=== PATIENT | male | born 1950 | race Two or more races ===

== ENCOUNTER 2020-05-20 09:00 | Outpatient (CLI) | payer OTHER | END 2020-05-20 09:17 | disposition home or self-care (01) | LOC: SONOGRAMA 09:00 | PROVIDERS: ATTEND Internal Medicine Gastroenterology | DX: R10.84 Generalized abdominal pain (principal); E83.119 Hemochromatosis, unspecified ==

== ENCOUNTER 2021-01-27 08:46 | Inpatient (IN) | payer OTHER ==
[~2021-01-27] VITALS: Ht 172.7 cm; Wt 87.1 kg
[2021-01-27] MEDS ORDERED: JARDIANCE25 MG PO (08:51)
[2021-01-27] MEDS ORDERED: TRESIBA FL100 UNIT/1 (08:52)
[2021-01-27] MEDS ORDERED: PROTONIX40 MG PO (08:52)
[2021-01-27] MEDS ORDERED: INDERAL LA80 MG (08:53)
[2021-01-27] MEDS ORDERED: IRON240 MG (08:54)
[2021-01-28] MEDS ORDERED: CLINDAMYCIN PHO30 M1 (10:59)
== END 2021-01-29 18:43 | disposition home or self-care (01) | DRG 812 ==
LOC: ER 08:46 → SEC-K 19:30 → MEDI 19:30 → MEDJ 01-28 14:37
PROVIDERS: ADMIT Internal Medicine; ATTEND Internal Medicine
PROC: 30233N1 Transfusion of Nonautologous Red Blood Cells into Peripheral Vein, Percutaneous Approach (ICD-10-PCS; principal; 2021-01-27)
DX: D64.9 Anemia, unspecified (principal); D61.818 Other pancytopenia; E83.118 Other hemochromatosis; E11.9 Type 2 diabetes mellitus without complications; Z79.4 Long term (current) use of insulin; K76.89 Other specified diseases of liver; Z85.72 Personal history of non-Hodgkin lymphomas; Z20.822 Contact with and (suspected) exposure to COVID-19

== ENCOUNTER 2021-05-05 11:30 | Inpatient (IN) | payer OTHER ==
[~2021-05-05] VITALS: Ht 172.7 cm; Wt 88.5 kg
[~2021-05-05 11:30] MED LIST: CLINDAMYCIN PHO30 M1; INDERAL LA80 MG; IRON240 MG; JARDIANCE25 MG PO; PROTONIX40 MG PO; TRESIBA FL100 UNIT/1
--- NOTE | 2021-05-05 12:35 | NUR ---
SE RECIBE PACIENTE MASCULINO DE 71 ANOS DE EDAD DESPIERTO Y ALERTA CON QUEJA PRINCIPAL DE ANEMIA. PACIENTE CON REFERIDO DE MEDICO PRIMARIO PARA TRANSFUSION
--- NOTE | 2021-05-05 13:56 | NUR ---
PACIENTE EVALUADO POR DR. GUILLEN. MR. AMADORAN COLECTA MUESTRAS DE ABELARDO DENA ORDEN MEDICA Y SIGUIENDO TECNICAS ASEPTICAS. SE ORIENTA A PACIENTE SOBRE POCEDIMIENTO. MR. AMADORAN COLECTA TUBOS PILOTOS PARA BANCO DE ABELARDO. SE REALIZA LLAMADA A BANCO QUIENES REFIEREN QUE PACIENTE YA TIENE RECORD EN EL HOSPITAL. SE ESPERA RESULTADOS DE LABORATORIO.
--- NOTE | 2021-05-05 14:23 | NUR ---
PACIENTE PENDIENTE DE REALIZAR MUESTRA DE COVID PARA ENVIAR A LABORATORIO.
--- NOTE | 2021-05-05 14:23 | NUR ---
SE REALIZA COTEJO DE HOJA DE REQUICION CON SR. CORTÉS DE LABORATIRIO CUAL NOTIFICA QUE TODO ESTA CORRECTO. PACIENTE AL MOMENTO SE MANTIENE PENDIENTE DE SER TRANFUNDIDO CON 4 UNIDADES DE PRBC POR ORDEN MEDICA DE DR. GUILLEN CUAL FIRMA CONSENTIMIENTO. PACIENTE TAMBIEN REALIZA FIRMA DE CONSENTIMIENTO.
--- NOTE | 2021-05-05 15:44 | NUR ---
SE RECIBE PTE EN EL AREA DE OBSERVACION EN GUILLAUME CON BARANDAS ELEVADA Y TIMBRE ACCESIBLE PTE ALERTA Y ORIENTADO POR 3 NO PRESENTA DOLOR AL MOMENTO SE OBSERVA VENOPUNCION PATENTE Y SKYE DE EDMEA PTE PENDIENTE EL COVID Y SE LE DA SEGUIMIENTO A LAS 4UNIDADES DE PRBC LA CUAL NO ESTAN DISPONIBLE AL MOMENTO
--- NOTE | 2021-05-05 17:46 | NUR ---
SE REALIZA CAMBIO EN ORDEN DE TRANSFUCCION DE PTE, SE COLOCARA 1RA UNIDAD DE PRBC COMPLETA Y SE REQUIZAN 2 UNIDADES DE PRBC FRACCIONADAS A BANCO DE ABELARDO [facility], SE NOTIFICA A MRS. HARRISON SOBRE REQUISION.
[2021-05-10] MEDS ORDERED: NADOLOL20 MG PO (15:25)
[2021-05-10] MEDS ORDERED: FUROSEMIDE40 MG PO (15:26)
[2021-05-10] MEDS ORDERED: SPIRONOLACTONE50 MG PO (15:26)
[2021-05-10] MEDS ORDERED: PROTONIX40 MG PO (15:27)
[2021-05-10] MEDS ORDERED: THIAMINE HCL100 MG PO (15:28)
[2021-05-10] MEDS ORDERED: VITAMIN B-121000 MC2 SL (15:29)
[2021-05-10] MEDS ORDERED: FOLIC ACID0.8 M1 PO (15:30)
== END 2021-05-10 15:48 | disposition home or self-care (01) | DRG 812 ==
LOC: ER 11:30 → MEDI 19:06
PROVIDERS: ADMIT Internal Medicine; ATTEND Internal Medicine
PROC: 30233N1 Transfusion of Nonautologous Red Blood Cells into Peripheral Vein, Percutaneous Approach (ICD-10-PCS; principal; 2021-05-05)
DX: D46.1 Refractory anemia with ring sideroblasts (principal); C85.90 Non-Hodgkin lymphoma, unspecified, unspecified site; E11.9 Type 2 diabetes mellitus without complications; K75.81 Nonalcoholic steatohepatitis (NASH); Z79.4 Long term (current) use of insulin

== ENCOUNTER 2021-05-22 14:08 | Emergency (ER) | payer OTHER ==
[~2021-05-22] VITALS: Ht 167.6 cm; Wt 68.0 kg
[~2021-05-22 14:08] MED LIST changes: +FOLIC ACID0.8 M1 PO; +FUROSEMIDE40 MG PO; +NADOLOL20 MG PO; +SPIRONOLACTONE50 MG PO; +THIAMINE HCL100 MG PO; +VITAMIN B-121000 MC2 SL
[2021-05-22] MEDS ORDERED: CEFPODOXIME PR200 MG PO (19:00)
== END 2021-05-22 19:33 | disposition home or self-care (01) ==
LOC: ER 14:08
DX: N39.0 Urinary tract infection, site not specified (principal); R41.82 Altered mental status, unspecified; R25.8 Other abnormal involuntary movements

== ENCOUNTER 2021-07-28 20:41 | Emergency (ER) | payer OTHER ==
[~2021-07-28] VITALS: Ht 172.7 cm; Wt 77.1 kg
[~2021-07-28 20:41] MED LIST changes: +CEFPODOXIME PR200 MG PO
== END 2021-07-28 23:21 | disposition home or self-care (01) ==
LOC: ER 20:41
DX: E78.00 Pure hypercholesterolemia, unspecified (principal); K74.69 Other cirrhosis of liver; R41.0 Disorientation, unspecified; R53.1 Weakness; T59.894A Toxic effect of other specified gases, fumes and vapors, undetermined, initial encounter; Y92.89 Other specified places as the place of occurrence of the external cause

== ENCOUNTER 2021-08-08 10:50 | Outpatient (CLI) | payer OTHER | END 2021-08-08 11:04 | disposition home or self-care (01) | LOC: SONOGRAMA 10:50 | PROVIDERS: ATTEND Internal Medicine Endocrinology, Diabetes & Metabolism | DX: N64.89 Other specified disorders of breast (principal); E11.65 Type 2 diabetes mellitus with hyperglycemia; E83.118 Other hemochromatosis; I25.10 Atherosclerotic heart disease of native coronary artery without angina pectoris ==

== ENCOUNTER 2023-05-19 11:09 | Outpatient (CLI) | payer OTHER ==
[~2023-05-19 11:09] MED LIST changes: +AMOX-CLAV 875-1 EAC1 PO; +PROBIOTIC ACID1 EAC1 PO
== END 2023-05-19 11:20 | disposition home or self-care (01) ==
LOC: RAD 11:09
PROVIDERS: ATTEND Internal Medicine
DX: M25.561 Pain in right knee (principal); M25.562 Pain in left knee; J22 Unspecified acute lower respiratory infection

== ENCOUNTER 2023-12-13 11:05 | Inpatient (IN) | payer OTHER ==
[~2023-12-13] VITALS: Ht 152.4 cm; Wt 75.7 kg
[2023-12-13] MEDS ORDERED: OZEMPIC0.25 MG/02 PO (11:31)
[2023-12-13] MEDS ORDERED: XIFAXAN550 MG PO (11:32)
[2023-12-13] MEDS ORDERED: 0.9 % SODIUM CHLORIDE 1,000 ML IV SCH (12:00)
[2023-12-13] MEDS ORDERED: PANTOPRAZOLE SODIUM 40 MG/VIAL VIAL IV PUSH ONE (12:15)
[2023-12-13 12:28] LABS: PH,URINE 6.5 (5.0-8.0); URINE APPEARANCE Clear; URINE BILIRRUBIN Negative (NEGATIVE); URINE BLOOD Negative; URINE COLOR Yellow; URINE LEUKOCYTE Negative; URINE NITRATE Negative; URINE PROTEIN Negative (NEGATIVE)
[2023-12-13 12:32] LABS: URINE BACTERIA 17.5 uL (0.0-1933); URINE EPITHELIAL CELLS 1.9 uL (0.0-38.8)
[2023-12-13 12:49] LABS: URINE GLUCOSE >=1000 MG/DL (NEGATIVE); URINE RBC 1.1 uL (0.0-20.8); URINE WBC 0.3 uL (0.0-23.2)
[2023-12-13 13:04] LABS: CALCIUM 7.9 mg/dL (8.5-10.1); CREATININE SERUM 0.74 mg/dL (0.70-1.30); GFR 103.11; POTASSIUM 4.2 mEq/L (3.5-5.1)
[2023-12-13 13:33] LABS: MEAN CELL VOLUME 87.3 fL (80.0-100.00); MEAN CORPUSCULAR HGB CONC 31.6 g/dl (32.0-36.0); PLATELET COUNT 135 K/uL (150-450); RED BLOOD COUNT 2.12 M/uL (4.00-6.00); RED CELL DISTRIBUTION WIDTH 17.5 % (11.5-14.5)
[2023-12-13 13:36] LABS: HEMATOCRIT 18.5 % (39.0-48.0); HEMOGLOBIN 5.9 g/dL (13-16.00); MEAN CORPUSCULAR HEMOGLOBIN 27.8 pg (27.00-32.0)
[2023-12-13 13:38] LABS: INR 1.07; PROTHROMBIN TIME 11.2 SECONDS (9.0-11.5)
[2023-12-13] MEDS ORDERED: FUROsemide 20 MG/2 ML VIAL IV SCH (14:00)
[2023-12-13] MEDS ORDERED: PANTOPRAZOLE SODIUM 80 MG in 0.9 % SODIUM CHLORIDE 100 ML IV SCH (14:00)
[2023-12-13] MEDS ORDERED: PATIENTS OWN MEDICATION (MEDICAMENTO EN PISO) PO SCH (17:29)
[2023-12-13] MEDS ORDERED: DEXTROSE 50 % IN WATER 0.5 G/ML DISP.SYRIN IV PRN (17:30)
[2023-12-13] MEDS ORDERED: INSULIN LISPRO 1,000 UNIT/10 ML UNITS SUBCUTANEO PRN (17:30)
[2023-12-14] MEDS ORDERED: NADOLOL 20 MG TABLET PO SCH (09:00)
[2023-12-14] MEDS ORDERED: LACTULOSE 20 G/30 ML BLIST.PACK PO SCH (09:00)
[2023-12-14] MEDS ORDERED: PATIENTS OWN MEDICATION (MEDICAMENTO EN PISO NEVERA) SUBCUTANEO SCH (09:00)
[2023-12-14] MEDS ORDERED: SPIRONOLACTONE 25 MG TABLET PO SCH (09:00)
[2023-12-14 10:57] LABS: MEAN CELL VOLUME 86.3 fL (80.0-100.00); MEAN CORPUSCULAR HGB CONC 32.5 g/dl (32.0-36.0); RED BLOOD COUNT 2.62 M/uL (4.00-6.00); RED CELL DISTRIBUTION WIDTH 16.1 % (11.5-14.5)
[2023-12-14 11:00] LABS: HEMATOCRIT 22.6 % (39.0-48.0); MEAN CORPUSCULAR HEMOGLOBIN 27.8 pg (27.00-32.0)
[2023-12-14 11:01] LABS: HEMOGLOBIN 7.3 g/dL (13-16.00); PLATELET COUNT 74 K/uL (150-450)
[2023-12-14] MEDS ORDERED: OCTREOTIDE ACETATE 0.05MG/ML (50MCG/ML) AMPUL IV ONE (11:30)
[2023-12-14] MEDS ORDERED: OCTREOTIDE ACETATE 1,000 MCG/5 ML VIAL IJ SCH (11:30)
[2023-12-14 11:54] LABS: ALBUMIN 2.3 gm/dL (3.4-5.0); BILIRUBIN TOTAL 1.4 mg/dL (0.3-1.2); BILIRUBIN,CONJUGATED 0.35 mg/dL (0.0-0.2); BILIRUBIN,UNCONJUGATED 1.05 mg/dL (0.0-0.6); MAGNESIUM 2.3 mg/dL (1.8-2.4); TOTAL PROTEIN 5.1 gm/dL (6.4-8.2)
[2023-12-14 12:06] LABS: PROSTATIC SPECIFIC ANTIGEN 0.093 NG/ML (0.010-4.00); TSH 1.57 uIU/mL (0.358-3.74)
[2023-12-14] MEDS ORDERED: OCTREOTIDE ACETATE 1,250 MCG in 0.9 % SODIUM CHLORIDE 250 ML IV SCH (12:15)
[2023-12-14] MEDS ORDERED: CHLORHEXIDINE GLUCONATE 120 ML BOTTLE TOP ONE (12:30)
[2023-12-14 14:55] LABS: INR 1.11; PARTIAL THROMBOPLASTIN TIME 24.9 SECONDS (22.0-34.0); PROTHROMBIN TIME 11.6 SECONDS (9.0-11.5)
[2023-12-14 20:34] LABS: HEMATOCRIT 28.5 % (39.0-48.0); MEAN CORPUSCULAR HGB CONC 32.5 g/dl (32.0-36.0); RED BLOOD COUNT 3.28 M/uL (4.00-6.00)
[2023-12-14 20:37] LABS: MEAN CORPUSCULAR HEMOGLOBIN 28.3 pg (27.00-32.0)
[2023-12-14 20:38] LABS: HEMOGLOBIN 9.3 g/dL (13-16.00); PLATELET COUNT 79 K/uL (150-450)
[2023-12-15 08:10] LABS: MEAN CORPUSCULAR HGB CONC 32.7 g/dl (32.0-36.0); RED CELL DISTRIBUTION WIDTH 16.1 % (11.5-14.5)
[2023-12-15 08:44] LABS: HEMOGLOBIN 8.8 g/dL (13-16.00); MEAN CORPUSCULAR HEMOGLOBIN 28.3 pg (27.00-32.0)
[2023-12-15] MEDS ORDERED: NADOLOL 20 MG TABLET PO SCH ×2 (09:00)
[2023-12-15] MEDS ORDERED: IRON FUM,PS/FOLIC/BCOMP,C NO.9 1 CAP CAPSULE PO SCH (09:00)
[2023-12-15] MEDS ORDERED: THIAMINE HCL 100 MG TABLET PO SCH (09:00)
[2023-12-15] MEDS ORDERED: PATIENTS OWN MEDICATION (MEDICAMENTO EN PISO) PO SCH (09:00)
[2023-12-15] MEDS ORDERED: CHOLECALCIFEROL (VITAMIN D3) 5,000 UNITS TABLET PO SCH (09:00)
[2023-12-15] MEDS ORDERED: CYANOCOBALAMIN (VITAMIN B-12) 1,000 MCG TABLET PO SCH (09:00)
[2023-12-15 09:04] LABS: PLATELET COUNT 92 K/uL (150-450)
[2023-12-15] MEDS ORDERED: SUCRALFATE 1 G TABLET PO SCH (09:16)
[2023-12-15] MEDS ORDERED: PANTOPRAZOLE SODIUM 40 MG TABLET.DR PO SCH (09:16)
[2023-12-16] MEDS ORDERED: PATIENTS OWN MEDICATION (MEDICAMENTO EN PISO NEVERA) SUBCUTANEO SCH ×2 (09:00→09:41)
[2023-12-16] MEDS ORDERED: INSULIN GLARGINE,HUM.REC.ANLOG 1,000 UNITS/10 ML UNITS SUBCUTANEO STA (10:15)
[2023-12-16 12:03] LABS: HEMATOCRIT 26.5 % (39.0-48.0); MEAN CELL VOLUME 87.6 fL (80.0-100.00); MEAN CORPUSCULAR HEMOGLOBIN 28.3 pg (27.00-32.0); MEAN CORPUSCULAR HGB CONC 32.5 g/dl (32.0-36.0); RED BLOOD COUNT 3.03 M/uL (4.00-6.00); RED CELL DISTRIBUTION WIDTH 16.8 % (11.5-14.5)
[2023-12-16 12:04] LABS: HEMOGLOBIN 8.6 g/dL (13-16.00); PLATELET COUNT 81 K/uL (150-450)
[2023-12-16 12:49] LABS: CREATININE SERUM 0.58 mg/dL (0.70-1.30); GFR 136.58; POTASSIUM 3.91 mEq/L (3.5-5.1)
[2023-12-16 19:24] LABS: ALT/SGPT 23 U/L (12-78); AST/SGOT 32 U/L (15-37); LDH 230 U/L (87-241); PHOSPHOKINASE CREATININE 246 U/L (39-308)
[2023-12-17] MEDS ORDERED: INSULIN GLARGINE,HUM.REC.ANLOG 1,000 UNITS/10 ML UNITS SUBCUTANEO SCH (09:00)
[2023-12-17 12:04] LABS: HEMATOCRIT 28.8 % (39.0-48.0); HEMOGLOBIN 9.6 g/dL (13-16.00); MEAN CELL VOLUME 87.1 fL (80.0-100.00); MEAN CORPUSCULAR HEMOGLOBIN 28.9 pg (27.00-32.0); MEAN CORPUSCULAR HGB CONC 33.1 g/dl (32.0-36.0); RED BLOOD COUNT 3.31 M/uL (4.00-6.00); RED CELL DISTRIBUTION WIDTH 16.2 % (11.5-14.5)
[2023-12-17 12:05] LABS: PLATELET COUNT 74 K/uL (150-450)
== END 2023-12-17 22:05 | disposition home or self-care (01) | DRG 812 ==
LOC: ER 11:05 → ICU-2 17:50 → ICU 17:50 → SURG 12-15 11:04
PROVIDERS: Emergency Medicine; ADMIT Internal Medicine; ATTEND Internal Medicine
PROC: 30233N1 Transfusion of Nonautologous Red Blood Cells into Peripheral Vein, Percutaneous Approach (ICD-10-PCS; 2023-12-13)
PROC: 4A12X4Z Monitoring of Cardiac Electrical Activity, External Approach (ICD-10-PCS; principal; 2023-12-15)
DX: D64.9 Anemia, unspecified (principal); K92.2 Gastrointestinal hemorrhage, unspecified; K76.82 Hepatic encephalopathy; E83.119 Hemochromatosis, unspecified; E83.01 Wilson's disease; K31.819 Angiodysplasia of stomach and duodenum without bleeding; E11.65 Type 2 diabetes mellitus with hyperglycemia; Z79.4 Long term (current) use of insulin; D75.839 Thrombocytosis, unspecified; I10 Essential (primary) hypertension; K76.9 Liver disease, unspecified; K74.60 Unspecified cirrhosis of liver; K74.69 Other cirrhosis of liver

== ENCOUNTER 2023-12-18 07:18 | Inpatient (IN) | payer OTHER ==
[~2023-12-18] VITALS: Ht 172.7 cm; Wt 63.5 kg
[~2023-12-18 07:18] MED LIST changes: +OZEMPIC0.25 MG/02 PO; +XIFAXAN550 MG PO
[2023-12-18] MEDS ORDERED: LACTULOSE 10 G/15 ML ML NGT STA (08:52)
[2023-12-18] MEDS ORDERED: FAMOtidine 10 MG/ML (4ML VIAL) IV STA (08:54)
[2023-12-18] MEDS ORDERED: 0.9 % SODIUM CHLORIDE 500 ML IV ONE (09:00)
[2023-12-18 09:55] LABS: HEMATOCRIT 28.2 % (39.0-48.0); HEMOGLOBIN 9.4 g/dL (13-16.00); MEAN CORPUSCULAR HEMOGLOBIN 28.3 pg (27.00-32.0); MEAN CORPUSCULAR HGB CONC 33.3 g/dl (32.0-36.0); RED BLOOD COUNT 3.32 M/uL (4.00-6.00); RED CELL DISTRIBUTION WIDTH 16.6 % (11.5-14.5)
[2023-12-18 09:56] LABS: PLATELET COUNT 75 K/uL (150-450)
[2023-12-18 10:18] LABS: ALBUMIN 2.5 gm/dL (3.4-5.0); BILIRUBIN TOTAL 2.39 mg/dL (0.3-1.2); BILIRUBIN,CONJUGATED 0.6 mg/dL (0.0-0.2); BILIRUBIN,UNCONJUGATED 1.79 mg/dL (0.0-0.6); CREATININE SERUM 0.65 mg/dL (0.70-1.30); GFR 119.75; POTASSIUM 3.86 mEq/L (3.5-5.1); TOTAL PROTEIN 5.6 gm/dL (6.4-8.2)
[2023-12-18] MEDS ORDERED: LACTULOSE 10 G/15 ML ML RECTAL STA ×2 (11:44→18:33)
[2023-12-18] MEDS ORDERED: LACTULOSE 20 G/30 ML BLIST.PACK PO SCH (13:00)
[2023-12-18] MEDS ORDERED: PATIENTS OWN MEDICATION (MEDICAMENTO EN PISO) PO SCH (18:41)
[2023-12-18] MEDS ORDERED: NADOLOL 20 MG TABLET PO SCH (18:42)
[2023-12-18] MEDS ORDERED: FUROsemide 20 MG/2 ML VIAL IV SCH (18:42)
[2023-12-18] MEDS ORDERED: DEXTROSE 50 % IN WATER 0.5 G/ML DISP.SYRIN IV PRN (18:45)
[2023-12-18] MEDS ORDERED: INSULIN LISPRO 1,000 UNIT/10 ML UNITS SUBCUTANEO PRN (18:45)
[2023-12-18] MEDS ORDERED: 0.9 % SODIUM CHLORIDE 1,000 ML IV SCH (19:30)
[2023-12-19 00:54] LABS: HEMATOCRIT 26.6 % (39.0-48.0); MEAN CELL VOLUME 86.2 fL (80.0-100.00); MEAN CORPUSCULAR HGB CONC 32.9 g/dl (32.0-36.0); RED BLOOD COUNT 3.09 M/uL (4.00-6.00); RED CELL DISTRIBUTION WIDTH 16.8 % (11.5-14.5)
[2023-12-19 01:28] LABS: HEMOGLOBIN 8.8 g/dL (13-16.00); MEAN CORPUSCULAR HEMOGLOBIN 28.4 pg (27.00-32.0); PLATELET COUNT 81 K/uL (150-450)
[2023-12-19] MEDS ORDERED: PANTOPRAZOLE SODIUM 40 MG/VIAL VIAL IV PUSH SCH (04:45)
[2023-12-19] MEDS ORDERED: FUROsemide 20 MG TABLET PO SCH (06:48)
[2023-12-19 07:10] LABS: HEMATOCRIT 25.4 % (39.0-48.0); MEAN CELL VOLUME 86.2 fL (80.0-100.00); MEAN CORPUSCULAR HGB CONC 33.1 g/dl (32.0-36.0); RED BLOOD COUNT 2.94 M/uL (4.00-6.00); RED CELL DISTRIBUTION WIDTH 16.9 % (11.5-14.5)
[2023-12-19 07:15] LABS: INR 1.27; PARTIAL THROMBOPLASTIN TIME 29.4 SECONDS (22.0-34.0); PROTHROMBIN TIME 13.1 SECONDS (9.0-11.5)
[2023-12-19 07:21] LABS: BILIRUBIN TOTAL 1.5 mg/dL (0.3-1.2); BILIRUBIN,CONJUGATED 0.45 mg/dL (0.0-0.2); BILIRUBIN,UNCONJUGATED 1.05 mg/dL (0.0-0.6); CALCIUM 7.6 mg/dL (8.5-10.1); CHOL HDL RATIO 2.9 (0-5.0); CREATININE SERUM 0.56 mg/dL (0.70-1.30); GFR 142.23; GLOBULINA 2.9 G/DL (2.4-3.5); POTASSIUM 3.72 mEq/L (3.5-5.1); TOTAL PROTEIN 4.9 gm/dL (6.4-8.2)
[2023-12-19 08:12] LABS: MEAN CORPUSCULAR HEMOGLOBIN 28.5 pg (27.00-32.0)
[2023-12-19 08:13] LABS: PLATELET COUNT 62 K/uL (150-450)
[2023-12-19 08:14] LABS: HEMOGLOBIN 8.4 g/dL (13-16.00)
[2023-12-19] MEDS ORDERED: SPIRONOLACTONE 25 MG TABLET PO SCH (09:00)
[2023-12-19] MEDS ORDERED: INSULIN GLARGINE,HUM.REC.ANLOG 1,000 UNITS/10 ML UNITS SUBCUTANEO SCH (09:00)
[2023-12-19 13:21] LABS: PH,URINE 5.5 (5.0-8.0); URINE APPEARANCE Clear; URINE BILIRRUBIN Negative (NEGATIVE); URINE BLOOD Negative; URINE COLOR Yellow; URINE LEUKOCYTE Negative; URINE NITRATE Negative; URINE PROTEIN Negative (NEGATIVE); URINE UROBILINOGEN 0.2 E.U./dl
[2023-12-19 13:24] LABS: URINE EPITHELIAL CELLS 1.5 uL (0.0-38.8)
[2023-12-19 13:26] LABS: URINE BACTERIA 1.2 uL (0.0-1933); URINE GLUCOSE 500 MG/DL (NEGATIVE); URINE RBC 0.4 uL (0.0-20.8); URINE WBC 1.2 uL (0.0-23.2)
[2023-12-19] MEDS ORDERED: FUROsemide 20 MG/2 ML VIAL IV SCH (23:30)
[2023-12-20 03:03] LABS: HEMATOCRIT 28.4 % (39.0-48.0); HEMOGLOBIN 9.5 g/dL (13-16.00); MEAN CORPUSCULAR HEMOGLOBIN 28.5 pg (27.00-32.0); MEAN CORPUSCULAR HGB CONC 33.5 g/dl (32.0-36.0); RED BLOOD COUNT 3.34 M/uL (4.00-6.00); RED CELL DISTRIBUTION WIDTH 15.9 % (11.5-14.5)
[2023-12-20 03:29] LABS: PLATELET COUNT 64 K/uL (150-450)
== END 2023-12-20 09:00 | disposition home or self-care (01) | DRG 441 ==
LOC: ER 07:18 → ICU-2 19:33
PROVIDERS: General Practice; ADMIT Internal Medicine; ATTEND Internal Medicine
PROC: 4A12X4Z Monitoring of Cardiac Electrical Activity, External Approach (ICD-10-PCS; 2023-12-18)
PROC: 30233N1 Transfusion of Nonautologous Red Blood Cells into Peripheral Vein, Percutaneous Approach (ICD-10-PCS; principal; 2023-12-19)
PROC: 30233K1 Transfusion of Nonautologous Frozen Plasma into Peripheral Vein, Percutaneous Approach (ICD-10-PCS; 2023-12-19)
DX: K76.82 Hepatic encephalopathy (principal); K31.811 Angiodysplasia of stomach and duodenum with bleeding; E72.20 Disorder of urea cycle metabolism, unspecified; D64.89 Other specified anemias; E86.0 Dehydration; I95.9 Hypotension, unspecified; E83.01 Wilson's disease; K76.89 Other specified diseases of liver; E11.9 Type 2 diabetes mellitus without complications; Z79.4 Long term (current) use of insulin; R41.0 Disorientation, unspecified

== ENCOUNTER 2024-04-24 08:14 | Inpatient (IN) | payer OTHER ==
[~2024-04-24] VITALS: Ht 172.7 cm; Wt 75.7 kg
--- NOTE | 2024-04-24 08:25 | NUR ---
PACIENTE ALERTA Y ORIENTADO X [address] Gong SORIA DEL BONITA SUMAN. REFIERE INFLAMACION EN BRAZO IZQ Y POSIBLE COAGULO.
[2024-04-24] MEDS ORDERED: INTEGRA CAPSUL1 EACH (08:38)
[2024-04-24] MEDS ORDERED: LASIX20 MG PO (08:41)
[2024-04-24] MEDS ORDERED: KETOROLAC TROMETHAMINE 15 MG VIAL IM STA (08:52)
[2024-04-24] MEDS ORDERED: KETOROLAC TROMETHAMINE 30 MG VIAL ONE (09:27)
[2024-04-24 10:01] LABS: HEMATOCRIT 24.3 % (39.0-48.0); MEAN CELL VOLUME 99.5 fL (80.0-100.00); MEAN CORPUSCULAR HGB CONC 33.2 g/dl (32.0-36.0); PLATELET COUNT 152 K/uL (150-450); RED BLOOD COUNT 2.44 M/uL (4.00-6.00); RED CELL DISTRIBUTION WIDTH 18.8 % (11.5-14.5)
--- NOTE | 2024-04-24 10:01 | NUR ---
PTE ALERTA Y ORIENTADO X3 ES EVALUADO POR EL DR. MURPHY. SE ORIENTA SOBRE TRATAMIENTO, VERBALIZA ENTENDER. SE KYLEE MUESTRAS DE LAB DENA ORDEN MEDICA BAJO MEDIDAS ASEPTICAS. SE NOTIFICA DUPLEX PENDIENTE. SE NOTIFICAN ABG A PERSONAL DE TERAPIAS RESPIRATORIA DE TURNO.
[2024-04-24 10:27] LABS: MEAN CORPUSCULAR HEMOGLOBIN 32.7 pg (27.00-32.0)
[2024-04-24 10:36] LABS: CALCIUM 8.2 mg/dL (8.5-10.1); CREATININE SERUM 0.57 mg/dL (0.70-1.30); GFR 138.98; POTASSIUM 4.68 mEq/L (3.5-5.1)
[2024-04-24 10:44] LABS: PARTIAL THROMBOPLASTIN TIME 27.3 SECONDS (22.0-34.0)
[2024-04-24 10:49] LABS: ABG PH 7.491 (7.35-7.45); ABG PO2 110.8 mmHg (80-100); ABG pCO2 30.9 mmHg (35-45); SaO2 98.7 %
[2024-04-24 10:50] LABS: BASE EXCESS 0.8 mmol/l; BICARBONATE 23.1 mmol/l (23-25); Tco2 24.1 mmol/l; allen test SATISFACTORY; o2 21 %; puncture site RADIAL LEFT
[2024-04-24 10:50] LABS: D DIMER 6.14 MG/L
[2024-04-24 11:12] LABS: INR 1.06; PROTHROMBIN TIME 11.1 SECONDS (9.0-11.5)
[2024-04-24] MEDS ORDERED: ENOXAPARIN SODIUM 40 MG/0.4 ML SYRINGE SUBCUTANEO SCH (13:41)
[2024-04-24] MEDS ORDERED: ENOXAPARIN SODIUM 40 MG/0.4 ML SYRINGE SUBCUTANEO ONE (14:33)
--- NOTE | 2024-04-24 14:40 | NUR ---
SE CANALIZA, SE KYLEE MESTRA Y SE ADMINISTRA MEDICAMENTO DENA ORDEN MEDICA BAJO MEDIDAS ASEPTICAS. SE COLOCA EN CRITICO CAMA #3 Y SE CONECTA A MONITOR CARDIACO Y SATUROMETRO. SE NOTIFICA CT PENDIENTE.
[2024-04-24 16:55] LABS: URINE APPEARANCE Clear; URINE BILIRRUBIN Negative (NEGATIVE); URINE BLOOD Negative; URINE COLOR Yellow; URINE LEUKOCYTE Negative; URINE NITRATE Negative; URINE PROTEIN Negative (NEGATIVE)
--- NOTE | 2024-04-24 16:55 | NUR ---
3PM SE RECIBE MASCULINO ALERTA Y ORIENTADO X3 EN COMPANIA DE ESPOSA EN CAMA #3 [id number] A MONITOR CARDIACO Y OXIMETRIA DE PULSO. VENOPUNCION PATENTE SKYE DE EDEMA Y ERITEMA EN H/L. 3:30PM SE CANALIZA PTE #18 RT ARM, PATENTE EN H/L PARA ESTUDIO ORDENADO. PERSONAL DE CT REALIZA ESTUDIO DENA ORDEN MEDICA.
[2024-04-24 17:00] LABS: URINE BACTERIA 111.9 uL (0.0-1933); URINE EPITHELIAL CELLS 2.3 uL (0.0-38.8); URINE RBC 3.2 uL (0.0-20.8)
[2024-04-24 17:06] LABS: URINE GLUCOSE >=1000 MG/DL (NEGATIVE); URINE WBC 1.2 uL (0.0-23.2)
[2024-04-24] MEDS ORDERED: PANTOPRAZOLE SODIUM 40 MG/VIAL VIAL IV PUSH SCH (17:36)
[2024-04-24] MEDS ORDERED: hydrALAZINE HCL 20 MG VIAL IV PRN (17:45)
[2024-04-24] MEDS ORDERED: ONDANSETRON HCL 2 MG/ML VIAL IV PRN (17:45)
[2024-04-24] MEDS ORDERED: 0.9 % SODIUM CHLORIDE 1,000 ML IV SCH (17:45)
[2024-04-24] MEDS ORDERED: SPIRONOLACTONE 25 MG TABLET PO SCH (19:29)
[2024-04-24] MEDS ORDERED: LACTULOSE 20 G/30 ML BLIST.PACK PO SCH (19:30)
[2024-04-24] MEDS ORDERED: PANTOPRAZOLE SODIUM 40 MG TABLET.DR PO SCH (19:30)
[2024-04-24] MEDS ORDERED: INSULIN LISPRO 1,000 UNIT/10 ML UNITS SUBCUTANEO PRN (19:45)
[2024-04-24] MEDS ORDERED: DEXTROSE 50 % IN WATER 0.5 G/ML DISP.SYRIN IV PRN (19:45)
[2024-04-24] MEDS ORDERED: SUCRALFATE 1 G TABLET PO SCH (21:00)
[2024-04-24] MEDS ORDERED: BUPIVACAINE HCL 30 ML VIAL IJ ONE (21:15)
[2024-04-24] MEDS ORDERED: IOVERSOL 320 MG/ML - 50 ML VIAL IV ONE (21:15)
[2024-04-24] MEDS ORDERED: FUROsemide 20 MG/2 ML VIAL IV SCH (22:00)
[2024-04-25 07:00] LABS: PH,URINE 7.5 (5.0-8.0); URINE APPEARANCE Clear; URINE BILIRRUBIN Negative (NEGATIVE); URINE BLOOD Negative; URINE COLOR Yellow; URINE LEUKOCYTE Negative; URINE NITRATE Negative; URINE PROTEIN Negative (NEGATIVE); URINE UROBILINOGEN 0.2 E.U./dl
[2024-04-25 07:01] LABS: URINE RBC 2.7 uL (0.0-20.8)
[2024-04-25 07:24] LABS: URINE EPITHELIAL CELLS 0.1 uL (0.0-38.8); URINE GLUCOSE 500 MG/DL (NEGATIVE)
[2024-04-25 07:39] LABS: ALBUMIN 2.3 gm/dL (3.4-5.0); BILIRUBIN TOTAL 0.99 mg/dL (0.3-1.2); BILIRUBIN,CONJUGATED 0.32 mg/dL (0.0-0.2); BILIRUBIN,UNCONJUGATED 0.67 mg/dL (0.0-0.6); CALCIUM 8.3 mg/dL (8.5-10.1); CHOL HDL RATIO 2.1 (0-5.0); CREATININE SERUM 0.51 mg/dL (0.70-1.30); GFR 158.01; GLOBULINA 4.4 G/DL (2.4-3.5); MAGNESIUM 1.9 mg/dL (1.8-2.4); POTASSIUM 4.03 mEq/L (3.5-5.1); TOTAL PROTEIN 6.7 gm/dL (6.4-8.2); TSH 1.8 uIU/mL (0.358-3.74)
[2024-04-25 08:25] LABS: COL ADP 92 SECONDS (56-102); COL EPI 108 SECONDS (82-175)
[2024-04-25] MEDS ORDERED: NADOLOL 20 MG TABLET PO SCH (09:00)
[2024-04-25] MEDS ORDERED: THIAMINE HCL 100 MG/ML 2 ML VIAL IV SCH (09:00)
[2024-04-25] MEDS ORDERED: SOD FERRIC GLUC COMPLX/SUCROSE 62.5 MG in 0.9 % SODIUM CHLORIDE 50 ML IV SCH (09:00)
[2024-04-25] MEDS ORDERED: CYANOCOBALAMIN (VITAMIN B-12) 1,000 MCG/ML VIAL IM SCH (09:00)
[2024-04-25] MEDS ORDERED: XIFAXAN 550 MG PO SCH (09:00)
[2024-04-25] MEDS ORDERED: FLUMAZENIL 0.5 MG/5 ML ML IV STA (12:05)
[2024-04-25] MEDS ORDERED: NALOXONE HCL 0.4 MG/ML AMPUL IV STA (12:05)
[2024-04-25] MEDS ORDERED: NALOXONE HCL 0.4 MG/ML AMPUL ONE (12:10)
[2024-04-25] MEDS ORDERED: FUROsemide 20 MG/2 ML VIAL ONE (14:14)
[2024-04-25 16:37] LABS: HEMATOCRIT 28.8 % (39.0-48.0); HEMOGLOBIN 9.6 g/dL (13-16.00); MEAN CELL VOLUME 93.1 fL (80.0-100.00); MEAN CORPUSCULAR HEMOGLOBIN 31.1 pg (27.00-32.0); MEAN CORPUSCULAR HGB CONC 33.4 g/dl (32.0-36.0); PLATELET COUNT 180 K/uL (150-450); RED CELL DISTRIBUTION WIDTH 21.3 % (11.5-14.5)
[2024-04-25] MEDS ORDERED: LACTULOSE 10 G/15 ML ML RECTAL NR (18:45)
[2024-04-25 23:33] LABS: ob NEGATIVE (NEGATIVE)
[2024-04-26] MEDS ORDERED: LACTULOSE 20 G/30 ML BLIST.PACK PO SCH (01:00)
[2024-04-26] MEDS ORDERED: LACTULOSE 10 G/15 ML ML RECTAL ONE (09:45)
[2024-04-26] MEDS ORDERED: KETOROLAC TROMETHAMINE 60 MG VIAL IM ONE (14:15)
[2024-04-27] MEDS ORDERED: LACTULOSE 20 G/30 ML BLIST.PACK ONE (00:30)
[2024-04-27] MEDS ORDERED: CHLORHEXIDINE GLUCONATE 120 ML BOTTLE TOP ONE (08:24)
== END 2024-04-27 11:18 | disposition home or self-care (01) | DRG 301 ==
LOC: ER 08:15 → ICU-2 19:09
PROVIDERS: General Practice; Radiology Vascular & Interventional Radiology; ADMIT Internal Medicine; ATTEND Internal Medicine
PROC: B54BZZZ Ultrasonography of Right Lower Extremity Veins (ICD-10-PCS; 2024-04-24)
PROC: 06H03DZ Insertion of Intraluminal Device into Inferior Vena Cava, Percutaneous Approach (ICD-10-PCS; 2024-04-24)
PROC: BB24Y0Z Computerized Tomography (CT Scan) of Bilateral Lungs using Other Contrast, Unenhanced and Enhanced (ICD-10-PCS; principal; 2024-04-24 19:30)
PROC: 30233N1 Transfusion of Nonautologous Red Blood Cells into Peripheral Vein, Percutaneous Approach (ICD-10-PCS; 2024-04-25)
DX: I82.411 Acute embolism and thrombosis of right femoral vein (principal); D46.4 Refractory anemia, unspecified; K31.819 Angiodysplasia of stomach and duodenum without bleeding; E83.119 Hemochromatosis, unspecified; E11.65 Type 2 diabetes mellitus with hyperglycemia; Z79.4 Long term (current) use of insulin; E83.01 Wilson's disease; I10 Essential (primary) hypertension

== ENCOUNTER 2024-05-21 09:45 | Inpatient (IN) | payer OTHER ==
[~2024-05-21] VITALS: Ht 172.7 cm; Wt 74.8 kg
[~2024-05-21 09:45] MED LIST changes: +INTEGRA CAPSUL1 EACH; +LASIX20 MG PO
--- NOTE | 2024-05-21 10:00 | NUR ---
PTE ALERTA Y ORIENTADO X3 ACOMPANADO POR FAMILIAR. FAMILIAR REFIERE TENER RESULTADOS DE HEMOGLOBINA EN 6.5 REALIZADOS DASHAWN EL BONITA DE HOY. PTE REFIERE SENTIR MAREOS. SE ESTIMAN S/V Y SE UBICA. PTE DE DR. AIXA SORIA.
[2024-05-21] MEDS ORDERED: 0.9 % SODIUM CHLORIDE 1,000 ML IV STA (10:16)
--- NOTE | 2024-05-21 10:26 | NUR ---
SE ORIENTA A PACIENTE Y FAMILIAR SOBRE TX MEDICO, REFIERE ENTENDER. SE REALIZAN MUESTRAS DE LABORATORIO BAJO MEDIDAS ASEPTICAS. SE ADMINISTRA IV'S DENA ORDEN MEDICA. SE REALIZA EKG. PENDIENTE RE-EVALUACION MEDICA.
[2024-05-21 10:43] LABS: MEAN CELL VOLUME 97.8 fL (80.0-100.00); RED BLOOD COUNT 1.89 M/uL (4.00-6.00); RED CELL DISTRIBUTION WIDTH 19.3 % (11.5-14.5)
[2024-05-21 10:44] LABS: HEMATOCRIT 18.5 % (39.0-48.0); HEMOGLOBIN 5.9 g/dL (13-16.00); MEAN CORPUSCULAR HEMOGLOBIN 31.2 pg (27.00-32.0); PLATELET COUNT 102 K/uL (150-450)
[2024-05-21 10:49] LABS: INR 1.13; PARTIAL THROMBOPLASTIN TIME 24.8 SECONDS (22.0-34.0); PROTHROMBIN TIME 11.8 SECONDS (9.0-11.5)
[2024-05-21 10:56] LABS: ALBUMIN 2.1 gm/dL (3.4-5.0); BILIRUBIN TOTAL 0.63 mg/dL (0.3-1.2); BILIRUBIN,CONJUGATED 0.2 mg/dL (0.0-0.2); BILIRUBIN,UNCONJUGATED 0.43 mg/dL (0.0-0.6); CALCIUM 8.3 mg/dL (8.5-10.1); CREATININE SERUM 0.7 mg/dL (0.70-1.30); GFR 109.64; POTASSIUM 4.88 mEq/L (3.5-5.1); TOTAL PROTEIN 5.7 gm/dL (6.4-8.2)
--- NOTE | 2024-05-21 11:00 | NUR ---
SE ORIENTA A PACIENTE SOBRE PROTOCOLO DE TRANSFUSION DE ABELARDO EL CUAL REFIERE ENTENDER. SE COLECTAN MUESTRAS DE TUBOS PILOTOS PARA 3 UNIDADES DE PRBC FRACCIONADAS, SE LLEVAN MUESTRAS A [facility]. SE PROVEE CONSENTIMIENTO PARA TRANSFUSION DE ABELARDO A PACIENTE Y MEDICO LOS CUALES FIRMAN DOCUMENTO, SE ANEJA AL EXPENDIENTE MEDICO. SE UBICA A PACIENT EN CAMA #2 DE ICU 2, SE CONECTA A MONITOR CARDIACO, OXIMETRIA DE PULSO Y SE COLOCA CANULA NASAL A 2LTS. SE ENTREGA PACIENTE A . PENDIENTE CONSULTA CON DR.LUIS SORIA LA CUAL FUE NOTIFICADA POR .
--- NOTE | 2024-05-21 11:25 | NUR ---
SE RECIBE PACIENTE ALERTA Y ORIENTADO X3 A LA UNIDAD DE ICU 2 EN ER EN LA CAMA 2 POR ORDEN VERBAL DE SORIA POR ANEMIA. SE CONECTA A MONITOR CARDIACO Y OXIMETRIA DE PULSO. PENDIENTE A TRANSFUNIR 3 UNIDADES PRBC'S FRACCIONADA REQUISADA POR GLEN BECKMAN.
[2024-05-21 12:46] LABS: PH,URINE 7.5 (5.0-8.0); URINE APPEARANCE Clear; URINE BILIRRUBIN Negative (NEGATIVE); URINE BLOOD NHT; URINE COLOR Yellow; URINE KETONE Negative (NEGATIVE); URINE LEUKOCYTE Negative; URINE NITRATE Negative; URINE PROTEIN Negative (NEGATIVE); URINE UROBILINOGEN 0.2 E.U./dl
[2024-05-21 12:49] LABS: URINE BACTERIA 13.8 uL (0.0-1933); URINE EPITHELIAL CELLS 4.6 uL (0.0-38.8); URINE RBC 35.9 uL (0.0-20.8); URINE WBC 2.6 uL (0.0-23.2)
[2024-05-21 12:59] LABS: URINE GLUCOSE 500 MG/DL (NEGATIVE)
[2024-05-21] MEDS ORDERED: PANTOPRAZOLE SODIUM 40 MG/VIAL VIAL IV PUSH SCH (14:36)
[2024-05-21] MEDS ORDERED: LACTULOSE 20 G/30 ML BLIST.PACK PO SCH (14:42)
[2024-05-21] MEDS ORDERED: FOLIC ACID 1 MG TABLET PO SCH (14:44)
[2024-05-21] MEDS ORDERED: CYANOCOBALAMIN (VITAMIN B-12) 1,000 MCG/ML VIAL IM SCH (14:44)
[2024-05-21] MEDS ORDERED: THIAMINE HCL 100 MG TABLET PO SCH (14:44)
[2024-05-21] MEDS ORDERED: LACTOBACILLUS ACIDOPHILUS 1 CAP CAP PO SCH (14:45)
[2024-05-21] MEDS ORDERED: ONDANSETRON HCL 2 MG/ML VIAL IV PRN (14:45)
[2024-05-21] MEDS ORDERED: 0.9 % SODIUM CHLORIDE 1,000 ML IV SCH (14:45)
[2024-05-21] MEDS ORDERED: FUROsemide 20 MG/2 ML VIAL IV PRN (14:45)
[2024-05-21] MEDS ORDERED: LACTULOSE 20 G/30 ML BLIST.PACK ONE ×2 (15:21→19:15)
[2024-05-21] MEDS ORDERED: LACTOBACILLUS ACIDOPHILUS 1 CAP CAP PO ONE (15:26)
[2024-05-21] MEDS ORDERED: SPIRONOLACTONE 50 MG TABLET PO SCH (17:00)
[2024-05-21] MEDS ORDERED: PATIENTS OWN MEDICATION (MEDICAMENTO EN PISO) PO SCH (17:00)
[2024-05-21] MEDS ORDERED: FUROsemide 20 MG/2 ML VIAL ONE (19:59)
[2024-05-22] MEDS ORDERED: FUROsemide 20 MG/2 ML VIAL ONE (06:19)
[2024-05-22] MEDS ORDERED: INSULIN LISPRO 1,000 UNIT/10 ML UNITS SUBCUTANEO PRN (08:00)
[2024-05-22] MEDS ORDERED: DEXTROSE 50 % IN WATER 0.5 G/ML DISP.SYRIN IV PRN (08:00)
[2024-05-22] MEDS ORDERED: FUROsemide 20 MG TABLET PO SCH (09:00)
[2024-05-22] MEDS ORDERED: NADOLOL 20 MG TABLET PO SCH (09:00)
[2024-05-22] MEDS ORDERED: CHLORHEXIDINE GLUCONATE 120 ML BOTTLE TOP ONE (09:29)
[2024-05-22] MEDS ORDERED: INSULIN LISPRO 1,000 UNIT/10 ML UNITS SUBCUTANEO ONE (16:42)
[2024-05-23] MEDS ORDERED: FUROsemide 20 MG/2 ML VIAL ONE (04:05)
[2024-05-23 06:35] LABS: URINE BACTERIA 138.4 uL (0.0-1933); URINE RBC 26.2 uL (0.0-20.8)
[2024-05-23 06:36] LABS: HEMATOCRIT 29.3 % (39.0-48.0); MEAN CELL VOLUME 91.3 fL (80.0-100.00); MEAN CORPUSCULAR HGB CONC 33.1 g/dl (32.0-36.0); RED BLOOD COUNT 3.21 M/uL (4.00-6.00); RED CELL DISTRIBUTION WIDTH 18.7 % (11.5-14.5)
[2024-05-23 06:39] LABS: HEMOGLOBIN 9.7 g/dL (13-16.00); MEAN CORPUSCULAR HEMOGLOBIN 30.2 pg (27.00-32.0); PLATELET COUNT 97 K/uL (150-450)
[2024-05-23 06:40] LABS: URINE APPEARANCE Clear; URINE BILIRRUBIN Negative (NEGATIVE); URINE BLOOD Small; URINE COLOR Yellow; URINE KETONE Negative (NEGATIVE); URINE LEUKOCYTE Trace; URINE NITRATE Negative; URINE PROTEIN Negative (NEGATIVE); URINE UROBILINOGEN 0.2 E.U./dl
[2024-05-23 06:45] LABS: URINE EPITHELIAL CELLS 0.4 uL (0.0-38.8); URINE GLUCOSE 500 MG/DL (NEGATIVE)
[2024-05-23 06:51] LABS: INR 1.14; PARTIAL THROMBOPLASTIN TIME 26.5 SECONDS (22.0-34.0); PROTHROMBIN TIME 11.9 SECONDS (9.0-11.5)
[2024-05-23 07:04] LABS: ALBUMIN 2.2 gm/dL (3.4-5.0); BILIRUBIN TOTAL 1.49 mg/dL (0.3-1.2); BILIRUBIN,CONJUGATED 0.43 mg/dL (0.0-0.2); BILIRUBIN,UNCONJUGATED 1.06 mg/dL (0.0-0.6); CREATININE SERUM 0.62 mg/dL (0.70-1.30); GFR 126.13; POTASSIUM 3.2 mEq/L (3.5-5.1); TOTAL PROTEIN 5.9 gm/dL (6.4-8.2); TSH 3.16 uIU/mL (0.358-3.74)
== END 2024-05-23 09:00 | disposition home or self-care (01) | DRG 812 ==
LOC: ER 09:46 → ICU-2 15:16
PROVIDERS: General Practice; ADMIT Internal Medicine; ATTEND Internal Medicine
PROC: 30233N1 Transfusion of Nonautologous Red Blood Cells into Peripheral Vein, Percutaneous Approach (ICD-10-PCS; principal; 2024-05-21)
DX: D64.89 Other specified anemias (principal); K31.819 Angiodysplasia of stomach and duodenum without bleeding; K76.82 Hepatic encephalopathy; E83.01 Wilson's disease; E11.65 Type 2 diabetes mellitus with hyperglycemia; K76.89 Other specified diseases of liver; D69.6 Thrombocytopenia, unspecified; I10 Essential (primary) hypertension; Z79.4 Long term (current) use of insulin; Z79.84 Long term (current) use of oral hypoglycemic drugs

== ENCOUNTER 2024-06-14 00:11 | Inpatient (IN) | payer OTHER ==
[~2024-06-14] VITALS: Ht 177.8 cm; Wt 90.7 kg
[2024-06-14] MEDS ORDERED: 0.9 % SODIUM CHLORIDE 1,000 ML IV STA (00:46)
[2024-06-14 01:41] LABS: ALBUMIN 2.4 gm/dL (3.4-5.0); BILIRUBIN TOTAL 1.11 mg/dL (0.3-1.2); CREATININE SERUM 0.64 mg/dL (0.70-1.30); GFR 121.59; GLOBULINA 3.6 G/DL (2.4-3.5); POTASSIUM 3.72 mEq/L (3.5-5.1)
[2024-06-14 01:56] LABS: HEMATOCRIT 24.4 % (39.0-48.0); HEMOGLOBIN 8.2 g/dL (13-16.00); MEAN CORPUSCULAR HEMOGLOBIN 32.1 pg (27.00-32.0); MEAN CORPUSCULAR HGB CONC 33.5 g/dl (32.0-36.0); PLATELET COUNT 77 K/uL (150-450); RED BLOOD COUNT 2.55 M/uL (4.00-6.00); RED CELL DISTRIBUTION WIDTH 22.6 % (11.5-14.5)
[2024-06-14 02:01] LABS: ABG PH 7.515 (7.35-7.45); ABG PO2 76.6 mmHg (80-100); ABG pCO2 27.1 mmHg (35-45); SaO2 96.6 %
[2024-06-14 02:02] LABS: BASE EXCESS -0.1 mmol/l; BICARBONATE 21.4 mmol/l (23-25); Tco2 22.2 mmol/l; allen test SATISFACTORY; o2 21 %; puncture site RADIAL RIGHT
[2024-06-14 02:07] LABS: INR 1.14; PROTHROMBIN TIME 12.3 SECONDS (9.0-11.5)
[2024-06-14 02:27] LABS: URINE APPEARANCE Clear; URINE BILIRRUBIN Negative (NEGATIVE); URINE BLOOD Negative; URINE COLOR Yellow; URINE KETONE Negative (NEGATIVE); URINE LEUKOCYTE Negative; URINE NITRATE Negative; URINE PROTEIN Negative (NEGATIVE); URINE UROBILINOGEN 0.2 E.U./dl
[2024-06-14 02:31] LABS: URINE BACTERIA 21.4 uL (0.0-1933); URINE EPITHELIAL CELLS 12.6 uL (0.0-38.8); URINE RBC 10.5 uL (0.0-20.8); URINE WBC 14.2 uL (0.0-23.2)
[2024-06-14 02:43] LABS: URINE GLUCOSE >=1000 MG/DL (NEGATIVE)
[2024-06-14] MEDS ORDERED: ACETAMINOPHEN 500 MG GEL..CAP PO ONE (03:41)
[2024-06-14] MEDS ORDERED: LACTULOSE 20 G/30 ML BLIST.PACK PO STA (04:56)
[2024-06-14] MEDS ORDERED: LACTULOSE 20 G/30 ML BLIST.PACK ONE ×2 (05:30→10:00)
[2024-06-14] MEDS ORDERED: LACTULOSE 10 G/15 ML ML RECTAL STA (06:56)
[2024-06-14] MEDS ORDERED: CEFEPIME HCL 2,000 MG in 0.9 % SODIUM CHLORIDE 100 ML IV SCH (09:33)
[2024-06-14] MEDS ORDERED: METRONIDAZOLE/SODIUM CHLORIDE 100 ML IV SCH (09:33)
[2024-06-14] MEDS ORDERED: LACTULOSE 20 G/30 ML BLIST.PACK PO SCH (09:34)
[2024-06-14] MEDS ORDERED: XIFAXAN 550 MG PO SCH ×2 (09:36→21:00)
[2024-06-14] MEDS ORDERED: NADOLOL 20 MG TABLET PO SCH (09:38)
[2024-06-14] MEDS ORDERED: PANTOPRAZOLE SODIUM 40 MG/VIAL VIAL IV SCH (09:39)
[2024-06-14] MEDS ORDERED: INSULIN LISPRO 1,000 UNIT/10 ML UNITS SUBCUTANEO PRN (09:45)
[2024-06-14] MEDS ORDERED: FUROsemide 20 MG/2 ML VIAL IV PRN (09:45)
[2024-06-14] MEDS ORDERED: DEXTROSE 50 % IN WATER 0.5 G/ML DISP.SYRIN IV PRN (09:45)
[2024-06-14] MEDS ORDERED: METRONIDAZOLE/SODIUM CHLORIDE 500 MG/100 ML PIGGYBACK IV ONE (09:59)
[2024-06-14] MEDS ORDERED: CEFEPIME HCL 2,000 MG VIAL ONE (09:59)
[2024-06-14] MEDS ORDERED: 0.9 % SODIUM CHLORIDE 1,000 ML IV SCH (10:15)
[2024-06-14] MEDS ORDERED: CHLORHEXIDINE GLUCONATE 120 ML BOTTLE TOP ONE (14:20)
[2024-06-14 16:00] VITALS: BP 107/64; O2SAT 100
[2024-06-14] MEDS ORDERED: SPIRONOLACTONE 25 MG TABLET PO SCH (17:00)
[2024-06-14 19:01] VITALS: BP 93/57; O2SAT 100
[2024-06-14 20:34] LABS: ob POSITIVE (NEGATIVE)
[2024-06-14 22:31] VITALS: BP 89/51; O2SAT 100
[2024-06-14 23:00] VITALS: BP 90/56; O2SAT 100
[2024-06-15] VITALS (9 sets, daily range): BP systolic 90–110; BP diastolic 25–76; O2SAT 100
[2024-06-15 04:36] LABS: MEAN CELL VOLUME 94.5 fL (80.0-100.00); MEAN CORPUSCULAR HGB CONC 33.5 g/dl (32.0-36.0); RED BLOOD COUNT 2.48 M/uL (4.00-6.00); RED CELL DISTRIBUTION WIDTH 24.8 % (11.5-14.5)
[2024-06-15 04:36] LABS: PH,URINE 5.5 (5.0-8.0); URINE APPEARANCE Clear; URINE BILIRRUBIN Negative (NEGATIVE); URINE BLOOD NHT; URINE COLOR Dark Yellow; URINE KETONE Negative (NEGATIVE); URINE LEUKOCYTE Negative; URINE NITRATE Negative; URINE PROTEIN 30 (NEGATIVE); URINE UROBILINOGEN 0.2 E.U./dl
[2024-06-15 04:39] LABS: URINE EPITHELIAL CELLS 2.4 uL (0.0-38.8)
[2024-06-15 04:41] LABS: ERYTHROCYTE SEDIMENTATION RATE 2 mm/hr; INR 1.31; PARTIAL THROMBOPLASTIN TIME 33.8 SECONDS (22.0-34.0)
[2024-06-15 04:48] LABS: URINE CAST 0.61 uL (0.0-1.40); URINE GLUCOSE 500 MG/DL (NEGATIVE)
[2024-06-15 04:52] LABS: ALBUMIN 1.9 gm/dL (3.4-5.0); BILIRUBIN TOTAL 1.57 mg/dL (0.3-1.2); BILIRUBIN,CONJUGATED 0.47 mg/dL (0.0-0.2); BILIRUBIN,UNCONJUGATED 1.1 mg/dL (0.0-0.6); CALCIUM 7.4 mg/dL (8.5-10.1); CHOL HDL RATIO 1.9 (0-5.0); CREATININE SERUM 0.67 mg/dL (0.70-1.30); GFR 115.33; POTASSIUM 3.78 mEq/L (3.5-5.1); T4 FREE 0.93 NG/ML (0.76-1.46); TOTAL PROTEIN 5.2 gm/dL (6.4-8.2); TSH 1.68 uIU/mL (0.358-3.74)
[2024-06-15 04:53] LABS: C-REACTIVE PROTEIN 6.78 MG/DL (0.00-0.29)
[2024-06-15 05:00] LABS: MEAN CORPUSCULAR HEMOGLOBIN 31.4 pg (27.00-32.0); PLATELET COUNT 52 K/uL (150-450)
[2024-06-15 05:01] LABS: HEMATOCRIT 23.4 % (39.0-48.0); HEMOGLOBIN 7.8 g/dL (13-16.00)
[2024-06-15] MEDS ORDERED: DIATRIZOATE MEGLUMINE, SODIUM 30 ML BOTTLE PO NR (18:00)
[2024-06-16] MEDS ORDERED: ACETAMINOPHEN 500 MG GEL..CAP PO ONE (00:49)
[2024-06-16 01:04] VITALS: BP 99/57; O2SAT 100
[2024-06-16 03:55] VITALS: BP 102/55
[2024-06-16 06:32] VITALS: BP 101/61; O2SAT 99
[2024-06-16 07:30] VITALS: BP 107/65; O2SAT 100
[2024-06-16 09:17] LABS: HEMATOCRIT 29.4 % (39.0-48.0); MEAN CELL VOLUME 93.2 fL (80.0-100.00); MEAN CORPUSCULAR HGB CONC 33.7 g/dl (32.0-36.0); RED BLOOD COUNT 3.15 M/uL (4.00-6.00); RED CELL DISTRIBUTION WIDTH 22.9 % (11.5-14.5)
[2024-06-16 09:18] LABS: MEAN CORPUSCULAR HEMOGLOBIN 31.4 pg (27.00-32.0); PLATELET COUNT 60 K/uL (150-450)
[2024-06-16 09:19] LABS: HEMOGLOBIN 9.9 g/dL (13-16.00)
[2024-06-16 12:00] VITALS: BP 95/59; O2SAT 100
[2024-06-16 16:46] VITALS: BP 105/56
[2024-06-17 01:47] VITALS: BP 110/66
[2024-06-17 08:00] VITALS: BP 98/62
[2024-06-17 17:47] VITALS: BP 92/63
[2024-06-17 22:18] VITALS: BP 104/56
[2024-06-18 01:25] VITALS: BP 101/66
[2024-06-18 08:35] VITALS: BP 89/63
[2024-06-18 09:40] LABS: HEMATOCRIT 29.4 % (39.0-48.0); HEMOGLOBIN 9.9 g/dL (13-16.00); MEAN CELL VOLUME 94.5 fL (80.0-100.00); MEAN CORPUSCULAR HGB CONC 33.8 g/dl (32.0-36.0); RED BLOOD COUNT 3.11 M/uL (4.00-6.00); RED CELL DISTRIBUTION WIDTH 23.5 % (11.5-14.5)
[2024-06-18 09:44] LABS: PLATELET COUNT 69 K/uL (150-450)
[2024-06-18 20:28] VITALS: BP 100/61; O2SAT 100
[2024-06-19 01:38] VITALS: BP 101/66
[2024-06-19] MEDS ORDERED: INSULIN LISPRO 1,000 UNIT/10 ML UNITS SUBCUTANEO SCH (08:00)
[2024-06-19] MEDS ORDERED: INSULIN GLARGINE,HUM.REC.ANLOG 1,000 UNITS/10 ML UNITS SUBCUTANEO SCH (09:00)
[2024-06-19 10:21] VITALS: BP 109/62
[2024-06-19] MEDS ORDERED: LACTULOSE 20 G/30 ML BLIST.PACK PO SCH (17:00)
[2024-06-19] MEDS ORDERED: LACTOBACILLUS ACIDOPHILUS 1 CAP CAP PO SCH (17:00)
[2024-06-19 18:27] VITALS: BP 90/60
[2024-06-20 02:08] VITALS: BP 98/63
[2024-06-20 09:30] VITALS: BP 100/92; O2SAT 98
[2024-06-20 10:45] LABS: HEMOGLOBIN 9.8 g/dL (13-16.00); MEAN CELL VOLUME 96.2 fL (80.0-100.00); MEAN CORPUSCULAR HEMOGLOBIN 31.5 pg (27.00-32.0); MEAN CORPUSCULAR HGB CONC 32.8 g/dl (32.0-36.0); RED BLOOD COUNT 3.11 M/uL (4.00-6.00)
[2024-06-20 10:59] LABS: PLATELET COUNT 81 K/uL (150-450); RED CELL DISTRIBUTION WIDTH 25.2 % (11.5-14.5)
[2024-06-20 11:06] LABS: ALBUMIN 1.9 gm/dL (3.4-5.0); BILIRUBIN TOTAL 1.01 mg/dL (0.3-1.2); CALCIUM 7.7 mg/dL (8.5-10.1); CREATININE SERUM 0.51 mg/dL (0.70-1.30); GFR 158.01; GLOBULINA 3.2 G/DL (2.4-3.5); POTASSIUM 3.79 mEq/L (3.5-5.1); TOTAL PROTEIN 5.1 gm/dL (6.4-8.2)
== END 2024-06-20 17:12 | disposition home or self-care (01) | DRG 640 ==
LOC: ER 00:11 → ICU-2 10:53 → MEDI 06-16 13:52 → MEDJ 06-18 11:19
PROVIDERS: ADMIT Internal Medicine; ATTEND Internal Medicine
PROC: 30233N1 Transfusion of Nonautologous Red Blood Cells into Peripheral Vein, Percutaneous Approach (ICD-10-PCS; principal; 2024-06-14)
PROC: B020ZZZ Computerized Tomography (CT Scan) of Brain (ICD-10-PCS; 2024-06-14)
PROC: 4A12X4Z Monitoring of Cardiac Electrical Activity, External Approach (ICD-10-PCS; 2024-06-14)
PROC: BW21YZZ Computerized Tomography (CT Scan) of Abdomen and Pelvis using Other Contrast (ICD-10-PCS; 2024-06-15)
PROC: BB24ZZZ Computerized Tomography (CT Scan) of Bilateral Lungs (ICD-10-PCS; 2024-06-15)
DX: E86.9 Volume depletion, unspecified (principal); G93.41 Metabolic encephalopathy; R65.10 Systemic inflammatory response syndrome (SIRS) of non-infectious origin without acute organ dysfunction; K92.1 Melena; B19.9 Unspecified viral hepatitis without hepatic coma; D62 Acute posthemorrhagic anemia; D64.89 Other specified anemias; I95.9 Hypotension, unspecified; E11.65 Type 2 diabetes mellitus with hyperglycemia; K31.819 Angiodysplasia of stomach and duodenum without bleeding; K74.69 Other cirrhosis of liver; E83.118 Other hemochromatosis; D69.6 Thrombocytopenia, unspecified; I10 Essential (primary) hypertension; E83.01 Wilson's disease; Z79.85 Long-term (current) use of injectable non-insulin antidiabetic drugs; Z79.4 Long term (current) use of insulin

== ENCOUNTER 2024-07-22 13:53 | Inpatient (IN) | payer OTHER ==
[~2024-07-22] VITALS: Ht 172.7 cm; Wt 74.8 kg
--- NOTE | 2024-07-22 14:36 | NUR ---
PACIENTE ALERTA Y ORIENTADO X3. REFIERE VENIR POR RESULTADOS DE HEMOGLOBINA EN 6.7. SE ESTIMAN VITALES Y SE UBICA.
[2024-07-22 16:52] LABS: MEAN CELL VOLUME 100.1 fL (80.0-100.00); MEAN CORPUSCULAR HGB CONC 31.4 g/dl (32.0-36.0); RED BLOOD COUNT 1.99 M/uL (4.00-6.00)
[2024-07-22 17:01] LABS: HEMATOCRIT 19.9 % (39.0-48.0); HEMOGLOBIN 6.3 g/dL (13-16.00); MEAN CORPUSCULAR HEMOGLOBIN 31.6 pg (27.00-32.0); PLATELET COUNT 119 K/uL (150-450)
[2024-07-22 17:20] LABS: ALBUMIN 2.2 gm/dL (3.4-5.0); BILIRUBIN TOTAL 0.68 mg/dL (0.3-1.2); CALCIUM 8.1 mg/dL (8.5-10.1); CREATININE SERUM 0.56 mg/dL (0.70-1.30); GFR 141.85; POTASSIUM 4.76 mEq/L (3.5-5.1); TOTAL PROTEIN 6.2 gm/dL (6.4-8.2)
[2024-07-22] MEDS ORDERED: FUROsemide 20 MG/2 ML VIAL IV SCH (17:45)
[2024-07-22] MEDS ORDERED: PANTOPRAZOLE SODIUM 40 MG/VIAL VIAL IV SCH (17:52)
[2024-07-22] MEDS ORDERED: DEXTROSE 50 % IN WATER 0.5 G/ML DISP.SYRIN IV PRN (18:00)
[2024-07-22] MEDS ORDERED: INSULIN LISPRO 1,000 UNIT/10 ML UNITS SUBCUTANEO PRN (18:00)
[2024-07-22] MEDS ORDERED: 0.9 % SODIUM CHLORIDE 1,000 ML IV SCH (18:00)
[2024-07-22 18:28] LABS: INR 1.09; PROTHROMBIN TIME 11.8 SECONDS (9.0-11.5)
[2024-07-22 19:39] LABS: PH,URINE 7.5 (5.0-8.0); URINE APPEARANCE Clear; URINE BILIRRUBIN Negative (NEGATIVE); URINE BLOOD Negative; URINE COLOR Yellow; URINE KETONE Negative (NEGATIVE); URINE LEUKOCYTE Negative; URINE NITRATE Negative; URINE PROTEIN Negative (NEGATIVE)
[2024-07-22 19:43] LABS: URINE BACTERIA 13.8 uL (0.0-1933); URINE RBC 36.1 uL (0.0-20.8); URINE WBC 7.1 uL (0.0-23.2)
[2024-07-22 19:50] LABS: URINE GLUCOSE >=1000 MG/DL (NEGATIVE)
[2024-07-22 21:54] VITALS: BP 94/54
[2024-07-23 01:32] VITALS: BP 100/50; O2SAT 100
[2024-07-23] MEDS ORDERED: LACTULOSE 10 G/15 ML ML PO SCH (09:00)
[2024-07-23] MEDS ORDERED: LACTULOSE 20 G/30 ML BLIST.PACK PO SCH (09:00)
[2024-07-23] MEDS ORDERED: NADOLOL 20 MG TABLET PO SCH (09:00)
[2024-07-23] MEDS ORDERED: SPIRONOLACTONE 50 MG TABLET PO SCH (09:00)
[2024-07-23] MEDS ORDERED: IRON FUM,PS/FOLIC/BCOMP,C NO.9 1 CAP CAPSULE PO SCH (09:00)
[2024-07-23 09:04] VITALS: BP 105/62; O2SAT 99
[2024-07-23 18:07] VITALS: BP 117/64
[2024-07-23] MEDS ORDERED: XIFAXAN 550 MG PO SCH (21:00)
[2024-07-24 03:23] VITALS: BP 110/70; O2SAT 99
[2024-07-24 08:45] VITALS: BP 100/66
[2024-07-24 10:06] LABS: HEMATOCRIT 25.9 % (39.0-48.0); MEAN CORPUSCULAR HGB CONC 32.2 g/dl (32.0-36.0); RED BLOOD COUNT 2.75 M/uL (4.00-6.00)
[2024-07-24 10:37] LABS: HEMOGLOBIN 8.3 g/dL (13-16.00); MEAN CORPUSCULAR HEMOGLOBIN 30.1 pg (27.00-32.0); PLATELET COUNT 98 K/uL (150-450)
== END 2024-07-24 16:41 | disposition home or self-care (01) | DRG 811 ==
LOC: ER 13:55 → MEDJ 19:25
PROVIDERS: General Practice; ADMIT Internal Medicine; ATTEND Internal Medicine
PROC: 30233N1 Transfusion of Nonautologous Red Blood Cells into Peripheral Vein, Percutaneous Approach (ICD-10-PCS; principal; 2024-07-23)
DX: D64.9 Anemia, unspecified (principal); K55.21 Angiodysplasia of colon with hemorrhage; K92.2 Gastrointestinal hemorrhage, unspecified; K76.9 Liver disease, unspecified; E11.9 Type 2 diabetes mellitus without complications; Z79.4 Long term (current) use of insulin

== ENCOUNTER 2024-09-04 09:31 | Inpatient (IN) | payer OTHER ==
[~2024-09-04] VITALS: Ht 172.7 cm; Wt 74.8 kg
[2024-09-04] MEDS ORDERED: 0.9 % SODIUM CHLORIDE 1,000 ML IV SCH ×2 (09:45→18:15)
[2024-09-04 10:41] LABS: MEAN CELL VOLUME 100.4 fL (80.0-100.00); MEAN CORPUSCULAR HGB CONC 31.4 g/dl (32.0-36.0); PLATELET COUNT 160 K/uL (150-450); RED BLOOD COUNT 2.32 M/uL (4.00-6.00); RED CELL DISTRIBUTION WIDTH 19.2 % (11.5-14.5)
[2024-09-04 10:42] LABS: HEMATOCRIT 23.3 % (39.0-48.0); HEMOGLOBIN 7.3 g/dL (13-16.00); MEAN CORPUSCULAR HEMOGLOBIN 31.4 pg (27.00-32.0)
[2024-09-04] MEDS ORDERED: KRISTALOSE10 GM (10:54)
[2024-09-04] MEDS ORDERED: ALDACTONE50 MG PO (10:54)
--- NOTE | 2024-09-04 10:55 | NUR ---
PACIENTE MASCULINO QUE RESPONDE A ESTIMULOS DE DOLOR EN AMBULANCIA Y EN COMPANIA DE FAMILIAR, QUIEN VERBALIZA QUE LARRY A APCIENTE POR DESORIENTACION. SE MONITOREAN S/V, SE UBICA PACIENTE EN CRITICO #3, SE CONECTA EL MISMO A MONITOR CARDIACO Y OXIMETRIA DE PULSO CONTINUA, SE CANALIZA PACIENTE X2 EN BRAZO MALINA CON ANGIO #20 Y #18 LOS CUALES SE ENCUENTRA PATENTES, LIBRES DE EDEMA Y ERITEMA, SE LES COLOCA H/L. SE KYLEE MUESTRAS DE LABORATORIO PENDIENTES, SE INSERTA MENG BAJO MEDIDAS ASETPICAS Y ESTERILES CON SONDA #16, SE OBSERVA EGRESO COLOR AMARILLO OBSCURO, SKYE DE SANGRADO Y SEDIMENTACION. SE OBSERVA AERA DE PRESION EN AREA SACRAL. ESTUDIOS REALIZADO POR PERSONAL CORRESPONDIENTE.
[2024-09-04 10:57] LABS: INR 1.1; PROTHROMBIN TIME 11.9 SECONDS (9.0-11.5)
[2024-09-04 11:09] LABS: ALBUMIN 2.3 gm/dL (3.4-5.0); BILIRUBIN TOTAL 1.31 mg/dL (0.3-1.2); CALCIUM 8.3 mg/dL (8.5-10.1); CREATININE SERUM 0.75 mg/dL (0.70-1.30); GFR 101.25; GLOBULINA 4.3 G/DL (2.4-3.5); POTASSIUM 4.15 mEq/L (3.5-5.1); TOTAL PROTEIN 6.6 gm/dL (6.4-8.2)
[2024-09-04 11:37] LABS: PH,URINE 7.5 (5.0-8.0); URINE APPEARANCE Clear; URINE BILIRRUBIN Negative (NEGATIVE); URINE BLOOD Negative; URINE COLOR Yellow; URINE KETONE Trace (NEGATIVE); URINE LEUKOCYTE Negative; URINE NITRATE Negative; URINE PROTEIN Negative (NEGATIVE)
[2024-09-04 11:39] LABS: ob POSITIVE (NEGATIVE)
[2024-09-04 11:41] LABS: URINE BACTERIA 11.3 uL (0.0-1933); URINE WBC 5.8 uL (0.0-23.2)
[2024-09-04 11:50] LABS: URINE CAST 0.15 uL (0.0-1.40); URINE EPITHELIAL CELLS 0.4 uL (0.0-38.8); URINE GLUCOSE >=1000 MG/DL (NEGATIVE)
[2024-09-04] MEDS ORDERED: LACTULOSE 10 G/15 ML ML RECTAL ONE ×2 (12:30→13:45)
[2024-09-04 15:15] VITALS: BP 133/70; O2SAT 100
[2024-09-04 17:00] VITALS: BP 91/55; O2SAT 100
[2024-09-04] MEDS ORDERED: PANTOPRAZOLE SODIUM 40 MG/VIAL VIAL IV SCH (18:11)
[2024-09-04] MEDS ORDERED: FUROsemide 20 MG/2 ML VIAL IV SCH (18:15)
[2024-09-04] MEDS ORDERED: DEXTROSE 50 % IN WATER 0.5 G/ML DISP.SYRIN IV PRN (18:15)
[2024-09-04] MEDS ORDERED: INSULIN LISPRO 1,000 UNIT/10 ML UNITS SUBCUTANEO PRN (18:15)
[2024-09-04] MEDS ORDERED: LACTULOSE 10 G/15 ML ML PO SCH (18:25)
[2024-09-04 19:00] VITALS: BP 110/52; O2SAT 100
[2024-09-04 20:36] VITALS: BP 98/45
[2024-09-04 21:12] VITALS: BP 100/44; O2SAT 100
[2024-09-04 23:00] VITALS: BP 116/67; O2SAT 100
[2024-09-05] VITALS (10 sets, daily range): BP systolic 100–160; BP diastolic 50–72; O2SAT 100
[2024-09-05 06:45] LABS: HEMATOCRIT 24.4 % (39.0-48.0); MEAN CELL VOLUME 98.3 fL (80.0-100.00); RED BLOOD COUNT 2.48 M/uL (4.00-6.00)
[2024-09-05 07:21] LABS: MEAN CORPUSCULAR HEMOGLOBIN 31.4 pg (27.00-32.0)
[2024-09-05 07:29] LABS: HEMOGLOBIN 7.8 g/dL (13-16.00)
[2024-09-05 07:30] LABS: PLATELET COUNT 102 K/uL (150-450)
[2024-09-05] MEDS ORDERED: SPIRONOLACTONE 50 MG TABLET PO SCH (09:00)
[2024-09-05] MEDS ORDERED: PATIENTS OWN MEDICATION (MEDICAMENTO EN PISO) PO SCH ×3 (09:00→21:00)
[2024-09-05] MEDS ORDERED: SUCRALFATE 1 G TABLET PO SCH (09:49)
[2024-09-06 00:06] VITALS: BP 102/53; O2SAT 100
[2024-09-06 11:31] VITALS: BP 111/65; O2SAT 100
== END 2024-09-06 14:00 | disposition home or self-care (01) | DRG 442 ==
LOC: ER 09:31 → ICU-2 18:20
PROVIDERS: Emergency Medicine; ADMIT Internal Medicine; ATTEND Internal Medicine
PROC: B020ZZZ Computerized Tomography (CT Scan) of Brain (ICD-10-PCS; 2024-09-04)
PROC: 4A12X4Z Monitoring of Cardiac Electrical Activity, External Approach (ICD-10-PCS; 2024-09-04)
PROC: 30233N1 Transfusion of Nonautologous Red Blood Cells into Peripheral Vein, Percutaneous Approach (ICD-10-PCS; principal; 2024-09-05)
DX: K76.82 Hepatic encephalopathy (principal); E72.20 Disorder of urea cycle metabolism, unspecified; D64.89 Other specified anemias; K31.819 Angiodysplasia of stomach and duodenum without bleeding; E83.01 Wilson's disease; E11.9 Type 2 diabetes mellitus without complications; Z79.4 Long term (current) use of insulin

== ENCOUNTER 2024-09-11 10:48 | Emergency (ER) | payer OTHER ==
[~2024-09-11] VITALS: Ht 172.7 cm; Wt 73.5 kg
[~2024-09-11 10:48] MED LIST changes: +ALDACTONE50 MG PO; +KRISTALOSE10 GM
[2024-09-11] MEDS ORDERED: LACTULOSE 20 G/30 ML BLIST.PACK PO ONE (11:30)
[2024-09-11] MEDS ORDERED: 0.9 % SODIUM CHLORIDE 1,000 ML IV SCH (11:30)
[2024-09-11 12:30] LABS: HEMATOCRIT 30.2 % (39.0-48.0); MEAN CELL VOLUME 97.2 fL (80.0-100.00); MEAN CORPUSCULAR HGB CONC 32.9 g/dl (32.0-36.0); RED BLOOD COUNT 3.11 M/uL (4.00-6.00); RED CELL DISTRIBUTION WIDTH 19.2 % (11.5-14.5)
[2024-09-11 12:31] LABS: HEMOGLOBIN 9.9 g/dL (13-16.00); MEAN CORPUSCULAR HEMOGLOBIN 31.8 pg (27.00-32.0); PLATELET COUNT 107 K/uL (150-450)
[2024-09-11 12:50] LABS: ALBUMIN 2.1 gm/dL (3.4-5.0); BILIRUBIN TOTAL 0.97 mg/dL (0.3-1.2); CALCIUM 8.1 mg/dL (8.5-10.1); CREATININE SERUM 0.65 mg/dL (0.70-1.30); GFR 119.43; GLOBULINA 4.2 G/DL (2.4-3.5); POTASSIUM 4.17 mEq/L (3.5-5.1); TOTAL PROTEIN 6.3 gm/dL (6.4-8.2)
== END 2024-09-11 15:37 | disposition home or self-care (01) ==
LOC: ER 10:48
PROVIDERS: Emergency Medicine
DX: R53.81 Other malaise (principal); K76.82 Hepatic encephalopathy; R41.82 Altered mental status, unspecified; I10 Essential (primary) hypertension; E11.9 Type 2 diabetes mellitus without complications; Z79.4 Long term (current) use of insulin
CPT/HCPCS: 36415; 70450; 71045; 96365; 96366; 99284; J7030

== ENCOUNTER 2024-11-03 15:15 | Inpatient (IN) | payer OTHER ==
[~2024-11-03] VITALS: Ht 172.7 cm; Wt 73.5 kg
[2024-11-03] MEDS ORDERED: ALDACTONE25 MG (15:19)
[2024-11-03] MEDS ORDERED: LASIX20 MG (15:19)
--- NOTE | 2024-11-03 15:20 | NUR ---
SE RECIBE PACIENTE ALERTA Y ORIENTADO X 3 ESFERAS EL CUAL INDICA QUE PRESENTA DEBILIDAD DESDE HACE VARIOS GANDARA. PACIENTE INDICA QUE HACE DOS SEMANAS SE REALIZO UN CBC Y TENIA LA HEMOGLOBINA EN 7.5.
[2024-11-03] MEDS ORDERED: 0.9 % SODIUM CHLORIDE 1,000 ML IV SCH (16:30)
--- NOTE | 2024-11-03 16:46 | NUR ---
SE ORIENTA PTE SOBRE TX MEDICO EL CUAL REFIERE ENTENDER.SE LE EXTRAEN MUESTRAS BAJO MEDIDAS ASEPTICAS,SE CANALIZA Y SE COLOCAN FLUIDOS DE MANTENIMIENTO.
[2024-11-03 17:06] LABS: MEAN CELL VOLUME 98.5 fL (80.0-100.00); MEAN CORPUSCULAR HGB CONC 32.5 g/dl (32.0-36.0); RED BLOOD COUNT 2.38 M/uL (4.00-6.00)
[2024-11-03 17:10] LABS: HEMATOCRIT 23.4 % (39.0-48.0); HEMOGLOBIN 7.6 g/dL (13-16.00); MEAN CORPUSCULAR HEMOGLOBIN 31.9 pg (27.00-32.0); PLATELET COUNT 128 K/uL (150-450)
[2024-11-03] MEDS ORDERED: LACTULOSE 10 G/15 ML ML PO SCH (17:13)
[2024-11-03] MEDS ORDERED: FUROsemide 20 MG/2 ML VIAL IV SCH (17:15)
[2024-11-03] MEDS ORDERED: LACTULOSE 20 G/30 ML BLIST.PACK ONE (17:21)
--- NOTE | 2024-11-03 17:22 | NUR ---
AL MOMENTO DE LLENAR CONSENTIMIENTO DE TRANSFUCION PACIENTE REFIERE "QUE NO QUIERE TRANSFUNDIRSE".
[2024-11-03 17:31] LABS: BILIRUBIN TOTAL 0.81 mg/dL (0.3-1.2); BILIRUBIN,CONJUGATED 0.26 mg/dL (0.0-0.2); BILIRUBIN,UNCONJUGATED 0.55 mg/dL (0.0-0.6); CALCIUM 8.3 mg/dL (8.5-10.1); CREATININE SERUM 0.67 mg/dL (0.70-1.30); GFR 115.33; GLOBULINA 4.9 G/DL (2.4-3.5); POTASSIUM 4.15 mEq/L (3.5-5.1); TOTAL PROTEIN 6.9 gm/dL (6.4-8.2)
--- NOTE | 2024-11-03 19:04 | NUR ---
SE REQUISAN 2 UNIDADES/FRACC Y SE ZULEMA CONSENTIMIENTO DE TRANSFUCION LLENADO POR LESLIE ESPOSA.
[2024-11-03] MEDS ORDERED: INSULIN LISPRO 1,000 UNIT/10 ML UNITS SUBCUTANEO PRN (20:45)
[2024-11-03] MEDS ORDERED: DEXTROSE 50 % IN WATER 0.5 G/ML DISP.SYRIN IV PRN (20:45)
[2024-11-03] MEDS ORDERED: ACETAMINOPHEN 500 MG GEL..CAP PO PRN (20:45)
[2024-11-03 23:37] VITALS: BP 104/65
[2024-11-04 04:26] LABS: INR 1.11; PARTIAL THROMBOPLASTIN TIME 27.6 SECONDS (22.0-34.0)
[2024-11-04 08:04] VITALS: BP 105/55; O2SAT 98
[2024-11-04] MEDS ORDERED: XIFAXAN 550 MG PO SCH (09:00)
[2024-11-04] MEDS ORDERED: PANTOPRAZOLE SODIUM 40 MG/VIAL VIAL IV SCH (09:00)
[2024-11-04] MEDS ORDERED: SPIRONOLACTONE 50 MG TABLET PO SCH (09:00)
[2024-11-04] MEDS ORDERED: LACTULOSE 20 G/30 ML BLIST.PACK PO SCH (09:00)
[2024-11-04] MEDS ORDERED: RIFAXIMIN PO SCH (09:00)
[2024-11-04] MEDS ORDERED: LACTULOSE 20 G/30 ML BLIST.PACK ONE ×2 (11:01→13:06)
[2024-11-04] MEDS ORDERED: INSULIN LISPRO 1,000 UNIT/10 ML UNITS SUBCUTANEO ONE (14:03)
[2024-11-04 15:00] VITALS: BP 108/63; O2SAT 99
[2024-11-04] MEDS ORDERED: CEFTRIAXONE SODIUM 2,000 MG VIAL IV STA (16:56)
[2024-11-04 17:20] LABS: PH,URINE 5.5 (5.0-8.0); URINE APPEARANCE Clear; URINE BILIRRUBIN Negative (NEGATIVE); URINE BLOOD Small; URINE COLOR Yellow; URINE KETONE Negative (NEGATIVE); URINE LEUKOCYTE Trace; URINE NITRATE Negative; URINE PROTEIN Negative (NEGATIVE)
[2024-11-04 17:26] LABS: URINE BACTERIA 1587.2 uL (0.0-1933); URINE RBC 28.7 uL (0.0-20.8); URINE WBC 45.5 uL (0.0-23.2)
[2024-11-04 17:28] LABS: URINE EPITHELIAL CELLS 0.6 uL (0.0-38.8); URINE GLUCOSE >=1000 MG/DL (NEGATIVE)
[2024-11-05] VITALS: BP 105/65; O2SAT 100
[2024-11-05] MEDS ORDERED: FUROsemide 20 MG/2 ML VIAL ONE (01:23)
[2024-11-05 05:00] VITALS: BP 135/68
[2024-11-05 05:20] VITALS: BP 135/68
[2024-11-05 06:15] VITALS: O2SAT 100
[2024-11-05 06:56] LABS: HEMATOCRIT 25.2 % (39.0-48.0); MEAN CELL VOLUME 92.6 fL (80.0-100.00); MEAN CORPUSCULAR HGB CONC 33.7 g/dl (32.0-36.0); RED BLOOD COUNT 2.73 M/uL (4.00-6.00); RED CELL DISTRIBUTION WIDTH 19.7 % (11.5-14.5)
[2024-11-05 06:57] LABS: MEAN CORPUSCULAR HEMOGLOBIN 31.1 pg (27.00-32.0)
[2024-11-05 06:58] LABS: HEMOGLOBIN 8.5 g/dL (13-16.00); PLATELET COUNT 115 K/uL (150-450)
[2024-11-05 07:39] VITALS: BP 125/66; O2SAT 100
[2024-11-05] MEDS ORDERED: CEFTRIAXONE SODIUM 2,000 MG VIAL IV SCH (09:00)
[2024-11-05] MEDS ORDERED: XIFAXAN550 MG PO (09:18)
[2024-11-05] MEDS ORDERED: LACTULOSE20 GM/30 M PO (09:19)
[2024-11-05 10:00] VITALS: O2SAT 100
== END 2024-11-05 13:33 | disposition home or self-care (01) | DRG 812 ==
LOC: ER 15:15 → SEC-K 22:04 → MEDJ 22:04 → SEC-K 11-04 08:17 → MEDJ 11-04 13:48 → SEC-K 11-05 00:52 → MEDJ 11-05 03:22
PROVIDERS: General Practice; ADMIT Internal Medicine; ATTEND Internal Medicine
PROC: 30233N1 Transfusion of Nonautologous Red Blood Cells into Peripheral Vein, Percutaneous Approach (ICD-10-PCS; principal; 2024-11-04)
PROC: 4A12X4Z Monitoring of Cardiac Electrical Activity, External Approach (ICD-10-PCS; 2024-11-04)
DX: D50.0 Iron deficiency anemia secondary to blood loss (chronic) (principal); E72.20 Disorder of urea cycle metabolism, unspecified; K31.819 Angiodysplasia of stomach and duodenum without bleeding; E83.01 Wilson's disease; K76.82 Hepatic encephalopathy; E11.65 Type 2 diabetes mellitus with hyperglycemia; K74.60 Unspecified cirrhosis of liver; D63.8 Anemia in other chronic diseases classified elsewhere; R30.0 Dysuria; I10 Essential (primary) hypertension; R06.02 Shortness of breath; Z79.84 Long term (current) use of oral hypoglycemic drugs

== ENCOUNTER → 2024-11-30 | Emergency (ER) | payer OTHER ==
[~2024-11-30] VITALS: Ht 172.7 cm; Wt 73.5 kg
[~2024-11-30] MED LIST changes: +0.9 % SODIUM CHLORIDE 1,000 ML IV SCH; +ALDACTONE25 MG; +LACTULOSE 20 G/30 ML BLIST.PACK ONE; +LACTULOSE 20 G/30 ML BLIST.PACK PO ONE; +LACTULOSE20 GM/30 M PO; +LASIX20 MG; +PANTOPRAZOLE SODIUM 40 MG/VIAL VIAL IV ONE; +PIPERACILLIN/TAZOBACTAM SODIUM 3.375 GM VIAL IV ONE
[2024-11-30 14:10] LABS: HEMATOCRIT 26.6 % (39.0-48.0); MEAN CORPUSCULAR HGB CONC 32.2 g/dl (32.0-36.0); PLATELET COUNT 158 K/uL (150-450); RED BLOOD COUNT 2.74 M/uL (4.00-6.00); RED CELL DISTRIBUTION WIDTH 20.4 % (11.5-14.5)
[2024-11-30 14:11] LABS: HEMOGLOBIN 8.6 g/dL (13-16.00); MEAN CORPUSCULAR HEMOGLOBIN 31.3 pg (27.00-32.0)
[2024-11-30 14:16] LABS: ERYTHROCYTE SEDIMENTATION RATE 75 mm/hr
[2024-11-30 14:23] LABS: INR 1.05; PARTIAL THROMBOPLASTIN TIME 26.8 SECONDS (22.0-34.0); PROTHROMBIN TIME 11.4 SECONDS (9.0-11.5)
[2024-11-30 14:25] LABS: BILIRUBIN TOTAL 0.85 mg/dL (0.3-1.2); CALCIUM 8.1 mg/dL (8.5-10.1); CHOL HDL RATIO 2.6 (0-5.0); CREATININE SERUM 0.67 mg/dL (0.70-1.30); GFR 115.33; POTASSIUM 4.14 mEq/L (3.5-5.1)
[2024-11-30 14:35] LABS: ABG PH 7.492 (7.35-7.45); ABG PO2 76.9 mmHg (80-100); ABG pCO2 34.2 mmHg (35-45); BASE EXCESS 2.7 mmol/l; BICARBONATE 25.6 mmol/l (23-25); SaO2 96.5 %; Tco2 26.6 mmol/l
[2024-11-30 14:49] LABS: C-REACTIVE PROTEIN 2.19 MG/DL (0.00-0.29)
[2024-11-30 15:01] LABS: o2 21 %; puncture site RADIAL RIGHT
[2024-11-30 15:02] LABS: allen test SATISFACTORY
== END | disposition home or self-care (01) ==
LOC: ER 12:43
PROVIDERS: General Practice
DX: R53.1 Weakness (principal); R42 Dizziness and giddiness; I10 Essential (primary) hypertension; E11.9 Type 2 diabetes mellitus without complications
CPT/HCPCS: 36415; 70450; 71045; 74177; 82803; 93041; 96365; 99284; J2543 ×2; J3490; J7030; Q9965